=== PATIENT | female | born 1975 | race African-American/Black ===

== ENCOUNTER 2016-06-17 05:11 | Day surgery (SDC) | payer BC ==
[2016-06-13 13:25] VITALS: BMI 34.7
[2016-06-17] MEDS ORDERED: ONDANSETRON 4 MG/2 ML VIAL IVPUSH PRN (09:26)
[2016-06-17] MEDS ORDERED: oxyCODONE HCL 5 MG TABLET PO PRN (09:26)
[2016-06-17] MEDS ORDERED: LACTATED RINGERS SOLUTION 1,000 ML IV SCH (09:30)
[2016-06-17] MEDS ORDERED: LIDOCAINE 1%/EPI 1:100000 (50 ML MULTI DOSE VIAL) ONE (10:03)
[2016-06-17] MEDS ORDERED: BUPIVACAINE HCL/PF 0.5% (5MG/ML) 10 ML VIAL ONE (10:03)
[2016-06-17] MEDS ORDERED: LIDOCAINE HCL 1%, 10 MG/ML (20ML VIAL) ONE (10:03)
[2016-06-17] MEDS ORDERED: DEXAMETHASONE SOD PHOSPHATE 4 MG/1 ML VIAL ONE ×2 (10:13→10:32)
[2016-06-17] MEDS ORDERED: PROPOFOL 20 ML ONE ×2 (10:24)
[2016-06-17] MEDS ORDERED: MIDAZOLAM HCL 2 MG/2 ML SINGLE DOSE VIAL ONE ×2 (10:24→10:53)
[2016-06-17] MEDS ORDERED: BUPIVACAINE HCL/PF 0.5% (5MG/ML) 10 ML VIAL IJ ONE ×2 (10:41)
[2016-06-17] MEDS ORDERED: LIDOCAINE HCL 1%, 10 MG/ML (20ML VIAL) IJ ONE (10:41)
[2016-06-17] MEDS ORDERED: DEXAMETHASONE SOD PHOSPHATE 4 MG/1 ML VIAL NR ONE (10:57)
[2016-06-17 12:00] VITALS: TEMP 97.8
--- NOTE | 2016-06-17 12:29 | OP ---
Operative Note - Note: Operative Date: 06/17/16 Pre-Operative Diagnosis: painful right 5th hammertoe deformity Operation: Arthroplasty of pipj fifth digit right foot Findings: positive for fibrous tissue secondary to previous surgery years ago, very mininal sized middle phalanx secondary to surgery years ago, somewhat atrophic Surgeon: Diann Espino Anesthesiologist/DIALYSIS RN: Leonardo Crespo Anesthesia: Fractional Specimens Removed: head of proximal phalanx right 5th toe , skin fifth toe right Estimated Blood Loss (mls): 5 Instrument used (Debridements only): double action bone cutter Drains & Tubes with Location: none Operative Report Dictated: No
[2016-06-17 13:51] VITALS: BP 138/76; PULSE 67
--- NOTE | 2016-06-18 09:51 | OP ---
DATE OF OPERATION: 06/17/2016 PREOPERATIVE DIAGNOSIS: Painful 5th hammer digit, right foot. POSTOPERATIVE DIAGNOSIS: Painful 5th hammer digit, right foot. SURGEON: Diann Espino MD DENIAL MANAGEMENT REPRESENTATIVE: Dr. Alva Rojas ANESTHESIA: Fractional. OPERATION: Proximal interphalangeal joint arthroplasty of the right 5th digit. OPERATIVE FINDINGS: With the patient in supine position and placed under local anesthesia, the operative site was prepped and draped in the usual sterile manner. A right ankle tourniquet was applied, and the leg was elevated for approximately 5 minutes in which the tourniquet was inflated to 250 mmHg. Using an Esmarch bandage, the foot was exsanguinated from distal to proximal for 2 minutes. The leg was then lowered to the operative table. The Esmarch was removed and attention was directed to dorsal aspect of the 5th right digit where 2-cm elliptical incisions were made from proximal lateral to distal medial aspect. At this time, utilizing sharp dissection, the incisions were deepened and a small skin wedge was removed. Utilizing sharp and blunt dissection, the incisions were further deepened, taking care to preserve all neurovascular structures, clamping and ligating all bleeders as necessary. This incision was carried down to the level of the extensor tendon overlying the capsule. The tissue was noted to be very fibrous of the extensor tendon and around the surrounding capsule as well. Patient had surgery years ago, and a very large section of the middle phalanx was excised. There was a very small piece remaining, and the head of the proximal interphalangeal phalanx head was intact. Utilizing a single transverse linear incision through the tendon, the joint space was entered. Utilizing sharp dissection, all capsular and ligamentous attachments to the head of the proximal phalanx were resected, thus exposing the head of the proximal phalanx into the operative site. Utilizing a double-action bone cutting forceps, the head of the proximal phalanx was resected in toto. The cut was noted to be smooth and without spiculation. The wound was irrigated with copious amounts of sterile saline. The capsule and the extensor tendon apparatus were approximated with 4-0 Vicryl sutures. The skin was closed with 5-0 nylon sutures. A Betadine Adaptic was applied to the area after 3 mL of 0.5% Marcaine and 1 mL of 4 mg dexamethasone phosphate was injected into the base of the toe. The tourniquet was released after a 4 x 4 dry sterile dressing and a 4-inch Jolly wrap were applied with an Jeromy wrap. The tourniquet was then released an a normal hyperemic flush was noted to return to all 5 digits of the right foot to preoperative levels. The dressings were intact. There was no sign of sanguineous drainage oozing through the dressing. The patient tolerated the procedure and anesthesia well, was brought to the recovery room in good condition. Wound expectancy clean, contaminated. SEMAJ WEINBERG/[id number]
--- NOTE | 2016-06-18 14:16 | PATH ---
Surgical Pathology Report Patient Name: YURI NUÑEZ Med. Rec. #: [id number] /Age/Gender: 1975 (Age: 40) / F Account: [id number] Location: [facility] SURGICAL Taken: 06/17/2016 Received: 06/17/2016 Reported: 06/18/2016 Physicians: Diann Espino DPM Specimen(s) Received SKIN & BONE RIGHT 5TH TOE Clinical History Painful hammertoe fifth toe right foot Final Diagnosis BONE AND SKIN, RIGHT FOOT, FIFTH TOE HAMMER TOE, ARTHROPLASTY: BONE AND CARTILAGE WITH DEGENERATIVE CHANGES. ACANTHOTIC SKIN WITH HYPERKERATOSIS. Electronically Signed David Davis M.D. Gross Description Received in formalin labeled "right fifth toe skin and bone" is a 0.8 x 0.6 x 0.4 cm martin, irregular portion of bone. Also received within the same container is a 1.3 x 0.4 x 0.3 cm martin, irregular, unremarkable and unoriented portion of skin. The bone is bisected and the specimen is entirely submitted in one cassette, following decalcification. 06/17/2016 [facility]06/17[facility]2016
== END 2016-06-17 13:40 | disposition home or self-care (01) ==
LOC: JASU-SURG 05:11
PROVIDERS: ATTEND Podiatrist
PROC: 0SRP0JZ Replacement of Right Toe Phalangeal Joint with Synthetic Substitute, Open Approach (ICD-10-PCS; principal; 2016-06-17 09:00)
DX: M20.41 Other hammer toe(s) (acquired), right foot (principal)
CPT/HCPCS: 73630-TC-RT; 84703; 88304-TC; 94760; 97116-GP